=== PATIENT | male | born 1980 | race Caucasian/White ===

== ENCOUNTER 2018-12-29 19:15 | Emergency (ER) | payer OTHER ==
[~2018-12-29] VITALS: Ht 180.3 cm; Wt 111.0 kg
--- NOTE | 2018-12-29 19:17 | ED.ADGEN ---
Adult General Chief Complaint Chief Complaint ".. They took the sutures out today... for a cyst they removed at [facility].. 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 Patient has a 3 cm healing surgical site. There is no surrounding inflammation. There is no active bleeding. Sutures were removed today. Patient normally healthy. Up-to-date with vaccinations. No recent travel assignments overseas. Review of Systems Review of Systems Constitutional: Denies fever or chills [] Eyes: Denies change in visual acuity, redness, or eye pain [] HENT: Denies nasal congestion or sore throat [] Respiratory: Denies cough or shortness of breath [] Cardiovascular: No additional information not addressed in HPI [] GI: Denies abdominal pain, nausea, vomiting, bloody stools or diarrhea [] : Denies dysuria or hematuria [] Musculoskeletal: Denies back pain or joint pain [] Integument: Denies rash or skin lesions [dehiscence of suture site Neurologic: Denies headache, focal weakness or sensory changes [] Endocrine: Denies polyuria or polydipsia [] All other systems were reviewed and found to be within normal limits, except as documented in this note. Family History Family History Noncontributory Current Medications Current Medications Current Medications Medications (Trade) Dose Ordered Sig/Leila Start Time Stop Time Status Last Admin Dose Admin Bacitracin (Bacitracin Topical Pkt) 5 pkt 1X ONCE 12/29/18 19:45 12/29/18 19:46 DC 12/29/18 19:46 5 PKT Allergies Allergies Allergies Coded Allergies Type Severity Reaction Last Updated Verified iodine Allergy Unknown 12/29/18 Yes Physical Exam Physical Exam Constitutional: Well developed, well nourished, no acute distress, non-toxic appearance. [] HENT: Normocephalic, atraumatic, bilateral external ears normal, oropharynx moist, no oral exudates, nose normal. [] Eyes: PERRLA, EOMI, conjunctiva normal, no discharge. [] Neck: Normal range of motion, no tenderness, supple, no stridor. [] Cardiovascular:Heart rate regular rhythm, no murmur [] Lungs & Thorax: Bilateral breath sounds clear to auscultation [] Abdomen: Bowel sounds normal, soft, no tenderness, no masses, no pulsatile masses. [] Skin: Warm, dry, no erythema, no rash. [] Dehiscence of cyst removal site. Back: No tenderness, no CVA tenderness. [] Extremities: No tenderness, no cyanosis, no clubbing, ROM intact, no edema. [] Neurologic: Alert and oriented X 3, normal motor function, normal sensory function, no focal deficits noted. [] Psychologic: Affect normal, judgement normal, mood normal. [] Current Patient Data Vital Signs Vital Signs Date Time Temp Pulse Resp B/P (MAP) Pulse Ox O2 Delivery O2 Flow Rate FiO2 12/29/18 19:20 98.1 61 16 96 Room Air EKG EKG [] Radiology/Procedures Radiology/Procedures [] Course & Med Decision Making Course & Med Decision Making Pertinent Labs and Imaging studies reviewed. (See chart for details). Area clean with saline. Application of antibiotic ointment in the wound. Dressing with tape to aid with traction on closing the wound. Advised patient keep area clean and dry. Wear current dressing for the next 3 days. Advised he will most likely have a scar. Revision can occur in 6 months to 2 years. Return if any concerns. Follow-up primary care. [] Final Impression Final Impression 1. Suture line Dehiscence[] Dragon Disclaimer Dragon Disclaimer This electronic medical record was generated, in whole or in part, using a voice recognition dictation system. Discharge Summary Visit Information Final Diagnosis Problems Medical Problems: (1) Dehiscence of closure of skin Status: Acute Brief Hospital Course Allergies Allergies Coded Allergies Type Severity Reaction Last Updated Verified iodine Allergy Unknown 12/29/18 Yes Vital Signs Vital Signs Date Time Temp Pulse Resp B/P (MAP) Pulse Ox O2 Delivery O2 Flow Rate FiO2 12/29/18 19:20 98.1 61 16 96 Room Air Brief Hospital Course Mr. Núñez is a 38 old male who presented with dehiscence of suture line of previous cyst removal at [facility]. Discharge Information Condition at Discharge: Improved, Stable Disposition/Orders: D/C to Home Dischare Medications Current Medications Bacitracin (Bacitracin Topical Pkt) 5 pkt 1X ONCE TP Last administered on 12/29/18at 19:46; Admin Dose 5 PKT; Start 12/29/18 at 19:45; Stop 12/29/18 at 19:46; Status DC Dragon Disclaimer This chart was dictated in whole or in part using Voice Recognition software in a busy, high-work load, and often noisy Emergency Department environment. It may contain unintended and wholly unrecognized errors or omissions. MARCIE GUTIERREZ MD Dec 29, 2018 19:17
[2018-12-29 19:20] VITALS: BP 137/88
[2018-12-29] MEDS ORDERED: BACITRACIN ZINC TOPICAL OINT PACKET. TP ONE (19:45)
== END 2018-12-29 19:50 | disposition home or self-care (01) ==
LOC: ER 19:15
DX: T81.33XA Disruption of traumatic injury wound repair, initial encounter (principal); Z88.8 Allergy status to other drugs, medicaments and biological substances
CPT/HCPCS: 12020; 99283; 99284